=== PATIENT | male | born 1970 | race Caucasian/White ===

== ENCOUNTER 2024-01-01 15:26 | Emergency (ER) | payer OTHER, SELFPAY ==
[2024-01-01 15:31] VITALS: BP 142/96; PULSE 75; RESP 18; TEMP 36.7; O2SAT 99; BMI 25.1
--- NOTE | 2024-01-01 16:08 | ED.EYEPROB ---
HPI - Eye Problem General Chief complaint: Eye Problems Stated complaint: mold exposure? eye problem Time Seen by Provider: 01/01/24 15:55 History of Present Illness HPI Narrative: Patient 53-year-old male with history of hay fever presenting today with bilateral eye burning. It has been ongoing for the last 4 days or so. He reports that he moved into a new house he was doing some work on it but then fall he got some Hayfever thought there was mold exposure he left the house went to his apartment took some Benadryl in his hives in cough all stopped. However he still has burning in his eyes and thinks it is related to mold. He does not wear contacts or glasses. No drainage from his eyes blurry vision or double vision. Related Data Allergies Allergy/AdvReac Type Severity Reaction Status Date / Time No Known Drug Allergies Allergy Verified 01/01/24 15:31 Patient History Social History Smoking Status: Former smoker Smoking Status: Former smoker alcohol intake frequency: other Substance Use Type: does not use Exam Initial Vital Signs Initial Vital Signs: Vital Signs Temperature 98.0 F 01/01/24 15:31 Pulse Rate 75 01/01/24 15:31 Respiratory Rate 18 01/01/24 15:31 Blood Pressure 142/96 H 01/01/24 15:31 Pulse Oximetry 99 01/01/24 15:31 Oxygen Delivery Method Room Air 01/01/24 15:31 GENERAL: Well-appearing, well-nourished and in no acute distress. EYES: Extraocular muscles intact pupils equal round reactive to light no gross drainage no significant erythema Both eye was treated with proparacaine, stained with fluorescein. No dye uptake. No foreign body. CARDIOVASCULAR: peripheral pulses in tact, cap refill <2 sec RESPIRATORY: No respiratory distress, speaks in full sentences without difficulty ABDOMEN: Soft, nontender, no guarding or rebound EXTREMITIES: Normal range of motion, no clubbing or edema. Neurovascularly intact NEUROLOGICAL: Cranial nerves II through XII grossly intact. Normal gait and speech. SKIN: Warm, dry, no petechiae, no rashes or lesions. Course Orders Ordered: Discontinued Medications Fluorescein Sodium (Fluorescein 1 Mg Strip) 1 mg EYE-BOTH NOW ONE Stop: 01/01/24 16:11 Last Admin: 01/01/24 16:16 Dose: 1 mg Proparacaine HCl (Proparacaine 0.5% Ophth Rafaela) 1 drops EYE-BOTH NOW ONE Stop: 01/01/24 16:11 Last Admin: 01/01/24 16:16 Dose: 1 drop Vital Signs Vital signs: Vital Signs - 8 hr 01/01/24 15:31 Temperature 98.0 F Pulse Rate 75 Respiratory Rate 18 Blood Pressure 142/96 H Pulse Oximetry 99 Oxygen Delivery Method Room Air MDM - Eye Problem MDM Narrative Medical decision making narrative: Patient is quite convinced that mold is causing the burning in his eyes. There is no foreign body or corneal abrasion noted. No sign of bacterial conjunctivitis. Discussed with him possibly taking allergy medicine or artificial tears for dry eyes. Encouraged him to see an automation sales manager. Discharge Plan Departure Patient Disposition: Home Clinical Impression: Dry eye syndrome of both eyes Instructions: DI for Eye Allergic Reaction Activity Restrictions/Additional Instructions: *You have been diagnosed with possible dry eye *What to do: At this time I do recommend [id number] allergy medication like Kandis Claritin or Zyrtec this may help with your a fever. You may also try [id number] artificial tears or something for dry eye I do recommend that you go to a health service coordinator for an official eye examination *Continue to take medications as directed *Follow up with your primary care provider in 2-3 days or call [phone] *Return to ER if you should have any new, worsening or concerning symptoms Stand Alone Forms: Patient Portal/API
[2024-01-01] MEDS: FLUORESCEIN 1 MG STRIP EYE-BOTH (16:16)
[2024-01-01] MEDS: PROPARACAINE 0.5% OPHTH SOL 1 DROPS EYE-BOTH (16:16)
== END 2024-01-01 16:21 | disposition home or self-care (01) ==
PROVIDERS: Emergency Provider Emergency Medicine
DX: H04.123 Dry eye syndrome of bilateral lacrimal glands (principal)
CPT/HCPCS: 99282